=== PATIENT | female | born 1955 | race Caucasian/White ===

== ENCOUNTER 2017-11-07 18:29 | Emergency (ER) | payer OTHER ==
[~2017-11-07] VITALS: Ht 165.1 cm; Wt 72.6 kg
[~2017-11-07 18:29] MED LIST: FLEXERIL10 MG PO; PREMARIN0.45 MG PO; TOPROL XL 25MG25 MG PO
--- NOTE | 2017-11-07 20:08 | ED GI/GU/ABDOMINAL COMPLAINT ---
History of Present Illness General Chief Complaint: Abdominal Pain/Flank Pain Stated Complaint: L FLANK PAIN Source: patient Exam Limitations: no limitations Vital Signs & Intake/Output Vital Signs & Intake/Output Vital Signs Date Time Temp Pulse Resp B/P B/P Pulse O2 O2 Flow FiO2 Mean Ox Delivery Rate 11/07 2153 97.2 66 18 136/78 99 Room Air 11/07 1836 98.4 64 18 137/76 98 Room Air Room Air ED Intake and Output 11/08 0000 11/07 1200 Intake Total Output Total Balance Patient 160 lb Weight Weight Reported by Patient Measurement Method Allergies Coded Allergies: Penicillins (Intermediate, RASH 11/07/17) Reconcile Medications Conjugated Estrogens (Premarin) 0.45 MG TAB 0.45 MG PO AT BEDTIME HYSTERECTOMY (Reported) CYCLOBENZAPRINE HCL (Flexeril) 10 MG TABLET 1 TAB PO TID PRN BREAKTHROUGH PAIN Ibuprofen 800 MG TABLET 1 TAB PO TID PRN pain Metoprolol Succ XL (Toprol XL 25MG) 50 MG TAB.ER.24H 1 TAB PO AT BEDTIME IRREGULUAR HEARTBEAT (Reported) Ondansetron (Zofran Odt) 4 MG TAB.RAPDIS 1 TAB SL TID PRN nausea Oxycodone HCl/Acetaminophen (Percocet 5-325 MG Tablet) 5 MG-325 MG TABLET 1 TAB PO 4XDP PRN PAIN TEN...[id number] Triage Note: TRIAGE: 62 Y/O FEMALE PRESENTS C/O 06/20 LEFT FLANK REGION PAIN - SHARP SHOOTING, DULL ACHING, SPASMING 10 SINCE THIS MORNING. DENIES URINARY SYMPTOMS. Triage Nurses Notes Reviewed? yes ? n Is pt currently ? No Onset: Gradual Duration: day(s): Timing: recent history Quality/Severity: sharpness Location: left flank Radiation: no radiation Activities at Onset: none Prior Abdominal Problems: none Modifying Factors: Improves With: rest. Associated Symptoms: abdominal pain, nausea/vomiting HPI: 62 yo woman in prior good health presents with left flank pain. She notes, "I had some pain when I was walking the dogs... almost like I pulled a muscle... and then tonight at dinner, I felt a really sharp pain... it was awful... I doubled over." She notes that she is feeling better presently. She has no fever, chills, dysuria, radiation of pain, chest pain, dizziness. She is otherwise well. Past History Travel History Traveled to [place] past 21 day No Medical History Any Pertinent Medical History? see below for history Cardiovascular: hypertension Surgical History Surgical History: none Psychosocial History What is your primary language Lithuanian Tobacco Use: Never used ETOH Use: denies use Illicit Drug Use: denies illicit drug use Family History Hx Contributory? No Review of Systems Review of Systems Constitutional: Reports: no symptoms. EENTM: Reports: no symptoms. Respiratory: Reports: no symptoms. Cardiovascular: Reports: no symptoms. GI: Reports: no symptoms. Genitourinary: Reports: no symptoms. Musculoskeletal: Reports: no symptoms. Skin: Reports: no symptoms. Neurological/Psychological: Reports: no symptoms. Hematologic/Endocrine: Reports: no symptoms. Immunologic/Allergic: Reports: no symptoms. All Other Systems: Reviewed and Negative Physical Exam Physical Exam General Appearance: well developed/nourished Head: atraumatic, normal appearance Eyes: Bilateral: normal appearance. Ears, Nose, Throat, Mouth: hearing grossly normal Neck: normal inspection, supple, full range of motion, normal alignment Respiratory: normal breath sounds, chest non-tender, no respiratory distress, quiet respiration Cardiovascular: regular rate/rhythm Gastrointestinal: normal bowel sounds, soft, non-tender Back: left flank muscle tenderness to palpation. Extremities: normal range of motion Neurologic/Psych: no motor/sensory deficits, awake, alert, oriented x 3 Skin: intact, normal color, warm/dry Core Measures ACS in differential dx? No Sepsis Present: No Sepsis Focused Exam Completed? No Progress Differential Diagnosis: back pain, kidney stones vs other. Plan of Care: Orders Procedure Date/time Status TROPONIN LEVEL 11/07 1914 Complete LIPASE 11/07 1914 Complete HEPATIC FUNCTION PANEL 11/07 1914 Complete CBC WITHOUT DIFFERENTIAL 11/07 1914 Complete BASIC METABOLIC PANEL 11/07 1914 Complete AMYLASE 11/07 1914 Complete EKG 11/07 1914 Active URINALYSIS 11/07 1837 Complete Laboratory Tests 11/07/17 2001: Anion Gap 13, Estimated GFR > 60, BUN/Creatinine Ratio 27.8 H, Glucose 119 H, Calcium 10.0, Total Bilirubin 0.3, Direct Bilirubin 0.1, AST 22, ALT 29, Alkaline Phosphatase 75, Troponin I < 0.01, Total Protein 7.2, Albumin 4.1, Amylase 86, Lipase 268, CBC w Diff NO MAN DIFF REQ, RBC 4.75, MCV 90.5, MCH 30.0 , MCHC 33.2, RDW 13.1, MPV 9.0, Gran % 89.1 H, Lymphocytes % 4.8 L, Monocytes % 4.6, Eosinophils % 1.3, Basophils % 0.2, Absolute Granulocytes 9.5 H, Absolute Lymphocytes 0.5 L, Absolute Monocytes 0.5, Absolute Eosinophils 0.1, Absolute Basophils 0 11/07/17 1852: Urine Color YEL, Urine Clarity CLEAR, Urine pH 5.5, Ur Specific Mchenry >= 1.030 , Urine Protein 30 H, Urine Ketones NEG, Urine Nitrite NEG, Urine Bilirubin NEG , Urine Urobilinogen 0.2, Ur Leukocyte Esterase NEG, Ur Microscopic SEDIMENT EXAMINED, Urine RBC 25-50 H, Urine WBC 3-5 H, Ur Epithelial Cells FEW, Urine Crystals 1+ CA OX H, Urine Bacteria RARE H, Urine Mucus RARE, Urine Hemoglobin LARGE H, Urine Glucose NEG Diagnostic Imaging: Viewed by Me: CT Scan. Discussed w/RAD: CT Scan. Radiology Impression: PATIENT: JOSE JEFFERSON PRESENT AGE: 62 PATIENT ACCOUNT NO: [id number] : 54 LOCATION: [facility] ORDERING PHYSICIAN: Néstor Springer MD SERVICE DATE: 11/07/17 EXAM TYPE: CAT - CT ABD & PELVIS W/O IV CONTRAS EXAMINATION: CT ABDOMEN AND PELVIS WITHOUT CONTRAST CLINICAL INFORMATION: Left flank pain. Possible kidney stone. COMPARISON: 11/13/2011 TECHNIQUE: Multidetector volumetric imaging was performed from the superior aspect of the liver through the pubic symphysis. Sagittal and coronal reformatted images were obtained on the technologist's workstation. DLP: 315 mGy-cm FINDINGS: LUNG BASES: The visualized lung bases are unremarkable. LIVER, GALLBLADDER, AND BILIARY TREE: The liver is normal in size, shape, and attenuation. No focal hepatic lesion or biliary ductal dilatation. Gallbladder is surgically absent. PANCREAS: Unremarkable. SPLEEN: Unremarkable. ADRENAL GLANDS: A 1.3 cm nodule of the left adrenal gland has attenuation of 2 HU, consistent with lipid rich adenoma, and it remains similar in size compared to 11/13/2011. KIDNEYS AND URETERS: There is a 0.4 cm calyceal stone within the lower pole of the left kidney. Agqr-oo-[id number] left hydronephrosis and perinephric edema are caused by a calculus measuring up to 0.5 cm in the region of the ureteropelvic junction. Otherwise, the left ureter is unremarkable. There is a 0.5 cm hyperdense focus of 125 HU attenuation of the upper pole of the right kidney, consistent with a hyperdense cyst. Otherwise, the right kidney and right ureter are unremarkable. BLADDER: Unremarkable. GASTROINTESTINAL TRACT: Bowel loops are normal in size. Appendix is normal. Pancolonic diverticulosis without diverticulitis. No ascites or pneumoperitoneum. ABDOMINAL WALL: Unremarkable. LYMPH NODES: No pathologic sized lymph nodes in the abdomen or pelvis. VASCULAR: Abdominal aorta is normal in caliber. There is a circumaortic left renal vein. PELVIC VISCERA: Status post hysterectomy. No pelvic mass or free fluid. Multiple phleboliths are seen within the pelvis. OSSEOUS STRUCTURES: No suspicious osseous lesions. IMPRESSION: 1. Stfv-ix-ctxytuql left hydronephrosis and perinephric edema caused by a 0.5 cm calculus in the region of the ureteropelvic junction. In addition, a 0.4 cm calyceal stone is seen within the lower pole of the left kidney. 2. Pancolonic diverticulosis without diverticulitis. 3. Lipid rich adenoma of the left adrenal gland. DICTATED BY: Donovan Garcia MD DATE/TIME DICTATED:11/07/172051 MACHINE ASSEMBLER:ISRAEL DATE/TIME TRANSCRIBED:11/07/172051 CONFIDENTIAL, DO NOT COPY WITHOUT APPROPRIATE AUTHORIZATION. <Electronically signed in Other Vendor System> SIGNED BY: Donovan Garcia MD 11/07/172105 Initial ED EKG: normal sinus rhythm, NSR, no acute changes Departure Departure Disposition: HOME OR SELF CARE Condition: Stable Clinical Impression Primary Impression: Renal colic on left side Secondary Impressions: Kidney stones, calcium oxalate Referrals: Unknown (PCP/Family) Departure Forms: Customer Survey General Discharge Information Prescriptions: Current Visit Scripts Ibuprofen 1 TAB PO TID PRN pain #60 TAB Ref 1 Oxycodone HCl/Acetaminophen (Percocet 5-325 MG Tablet) 1 TAB PO 4XDP PRN PAIN #10 TAB TEN...[id number] Ondansetron (Zofran Odt) 1 TAB SL TID PRN nausea #10 TAB Ref 1 Comments 11/07/17, 21:20... pt feeling better. feels comfortable going home... pt referred to urology, sent rx for supportive medications.
[2017-11-07 20:09] LABS: ABSOLUTE BASOPHIL COUNT 0 /CUMM (0.0-0.2); ABSOLUTE EOSINOPHIL COUNT 0.1 /CUMM (0.0-0.7); ABSOLUTE GRANULOCYTE CT 9.5 /CUMM (1.4-6.5); ABSOLUTE LYMPH COUNT 0.5 /CUMM (1.2-3.4); ABSOLUTE MONOCYTE COUNT 0.5 /CUMM (0.10-0.60); BASOPHIL % 0.2 % (0.0-2.0); EOSINOPHIL % 1.3 % (0-5); MEAN CORPUSCULAR HGB CONC 33.2 G/DL (33.0-37.0); MEAN CORPUSCULAR VOLUME 90.5 FL (81.0-99.0); PLATELET COUNT 235 /CUMM (130-400); RBC DISTRIBUTION WIDTH 13.1 % (11.5-14.5); RED BLOOD CELL CT 4.75 /CUMM (4.20-5.40); WHITE BLOOD CELL COUNT 10.7 /CUMM (4.8-10.8)
[2017-11-07 20:10] LABS: GRANULOCYTE % 89.1 % (42.2-75.2)
--- NOTE | 2017-11-07 21:06 | CT SCAN REPORT ---
EXAMINATION: CT ABDOMEN AND PELVIS WITHOUT CONTRAST CLINICAL INFORMATION: Left flank pain. Possible kidney stone. COMPARISON: 11/13/2011 TECHNIQUE: Multidetector volumetric imaging was performed from the superior aspect of the liver through the pubic symphysis. Sagittal and coronal reformatted images were obtained on the technologist's workstation. DLP: 315 mGy-cm FINDINGS: LUNG BASES: The visualized lung bases are unremarkable. LIVER, GALLBLADDER, AND BILIARY TREE: The liver is normal in size, shape, and attenuation. No focal hepatic lesion or biliary ductal dilatation. Gallbladder is surgically absent. PANCREAS: Unremarkable. SPLEEN: Unremarkable. ADRENAL GLANDS: A 1.3 cm nodule of the left adrenal gland has attenuation of 2 HU, consistent with lipid rich adenoma, and it remains similar in size compared to 11/13/2011. KIDNEYS AND URETERS: There is a 0.4 cm calyceal stone within the lower pole of the left kidney. Hxln-at-kmsfdxar left hydronephrosis and perinephric edema are caused by a calculus measuring up to 0.5 cm in the region of the ureteropelvic junction. Otherwise, the left ureter is unremarkable. There is a 0.5 cm hyperdense focus of 125 HU attenuation of the upper pole of the right kidney, consistent with a hyperdense cyst. Otherwise, the right kidney and right ureter are unremarkable. BLADDER: Unremarkable. GASTROINTESTINAL TRACT: Bowel loops are normal in size. Appendix is normal. Pancolonic diverticulosis without diverticulitis. No ascites or pneumoperitoneum. ABDOMINAL WALL: Unremarkable. LYMPH NODES: No pathologic sized lymph nodes in the abdomen or pelvis. VASCULAR: Abdominal aorta is normal in caliber. There is a circumaortic left renal vein. PELVIC VISCERA: Status post hysterectomy. No pelvic mass or free fluid. Multiple phleboliths are seen within the pelvis. OSSEOUS STRUCTURES: No suspicious osseous lesions. IMPRESSION: 1. Sjbd-bb-xhzwfwmt left hydronephrosis and perinephric edema caused by a 0.5 cm calculus in the region of the ureteropelvic junction. In addition, a 0.4 cm calyceal stone is seen within the lower pole of the left kidney. 2. Pancolonic diverticulosis without diverticulitis. 3. Lipid rich adenoma of the left adrenal gland.
[2017-11-07] MEDS ORDERED: PERCOCET 5-3251 EACH PO (21:17)
[2017-11-07] MEDS ORDERED: ZOFRAN ODT4 M1 SL (21:17)
[2017-11-07] MEDS ORDERED: IBUPROFEN800 M1 PO (21:17)
[2017-11-07 21:53] VITALS: BP 136/78
== END 2017-11-07 21:55 ==
LOC: ERH 18:29
PROVIDERS: Pediatrics
DX: N23 Unspecified renal colic (principal); N20.0 Calculus of kidney; N28.89 Other specified disorders of kidney and ureter
CPT/HCPCS: 74176; 81001; 93005; 93010; 96372; J1885; J2405; J3101

== ENCOUNTER → 2017-11-23 | Day surgery (SDC) | payer OTHER ==
[~2017-11-23] VITALS: Ht 165.1 cm; Wt 73.0 kg
[~2017-11-23] MED LIST changes: +AMLODIPINE BESYL5 M1 PO; +ASPIRIN EC81 M1 PO; +CALCIUM600 M3 PO; +FISH OIL 1,0001 EACH PO; +FOLIC ACID0.4 M1 PO; +GARLIC1 EAC1 PO; +IBUPROFEN800 M1 PO; +LOPRESSOR50 M1 PO; +MAGNESIUM500 M2 PO; +PERCOCET 5-3251 EACH PO; +VITAMIN B-121000 MC3 PO; +VITAMIN D1000 UNIT PO; +ZOFRAN ODT4 M1 SL
--- NOTE | 2017-11-23 13:04 | Operative Report ---
Operative/Inv Procedure Report Surgery Date: 11/23/17 Name of Procedure: left ureter ESWL, fluoroscopy Pre-Operative Diagnosis: Left ureter stone, 7 mm in size Post-Operative Diagnosis: same Estimated Blood Loss: none Surgeon/Associate Vice President: Francois Padgett MD Anesthesia: moderate sedation Specimens: none Complications: none Operative/Procedure Note Note: The patient was taken to the operating room and placed on the ESWL table in supine position. Time out was performed, with the patient awake, to confirm identity, procedure, laterality, and other pertinent arnaldo-operative information. After adequate anesthesia, the patient was positioned so that the left flank was placed over the ESWL table cut-out, and overlying the dome of the shockwave generator. C-arm fluroscopy, as well as renal US was used to locate the stone, and evaluate the left kidney. The stone was visible on fluroloscopy at the left ureter. Renal US confirmed mild hydronephrosis, with no additional stone seen in the left kidney. The left ureter stone was approximate 7 mm in size, and faintly visible with fluoroscopy. Using fluoroscopy, the position of the ureter stone was optimized for ESWL, using AP, and oblique views of the stone. Subsequently, E.S.W.L. was initiated at low power levels x 200 shocks. After noting the patient's tolerance to the shockwaves, the shock wave power level was quickly maximized. At the end of the procedure, the composition of the stone had changed significantly indicating the pulverization of the ureter stone. A total of 3000 shockwaves were delivered to the stone in order to achieve adequate lithotrypsy. The patient tolerated the procedures well, was awakened, and taken to recovery in satisfactory condition via stretcher. The pt will eventually be dischared to home with pain meds, diet orders, and intructions to catch fragments with straining the urine. The patient is to have follow-up renal ultrasound and KUB (after the left renal stone is treated as well). Discharge Disposition: Same Day Admissions CC: Francois Padgett MD
== END ==
LOC: STS 03:32
DX: N13.2 Hydronephrosis with renal and ureteral calculous obstruction (principal); I10 Essential (primary) hypertension
CPT/HCPCS: J2250

== ENCOUNTER → 2018-01-06 | Day surgery (SDC) | payer OTHER ==
[~2018-01-06] VITALS: Ht 165.1 cm; Wt 73.0 kg
[~2018-01-06] MED LIST changes: +CIPRO500 M1 PO; +MACROBID 100 M100 MG PO
--- NOTE | 2018-01-06 17:08 | RADIOLOGY REPORT ---
EXAMINATION: XR ABDOMEN CLINICAL INFORMATION: Left cystoscopy stent placement with retrograde laser. COMPARISON: X-ray of kidneys, ureters, bladder 12/08/2017. Ultrasound renal 12/08/2017. CT abdomen and pelvis 11/07/2017 and 11/13/2011. TECHNIQUE: Several digital images were obtained in the OR during left retrograde pyelogram. FINDINGS: The initial image reveals a small filling defect in the left distal ureter above the UVJ area. There is a small column of intravenous contrast in the distal ureter. The subsequent images reveal a left ureteral stent with its proximal end in the left kidney pelvis and the proximal end not visualized. IMPRESSION: Small filling defect in the left distal ureter above the UVJ area. There is subsequent stent placement with its upper end in the left kidney pelvis and the distal end not in the [id number].
--- NOTE | 2018-01-19 08:02 | Operative Report ---
Operative/Inv Procedure Report Surgery Date: 01/06/18 Name of Procedure: cysto: left ureteroscopy with laser litho: stent placement.. fluoros. Pre-Operative Diagnosis: left obstructing stone with hydro-colic Post-Operative Diagnosis: same Estimated Blood Loss: scant Surgeon/Unload Associate: Francois Padgett MD Anesthesia: moderate sedation Specimens: left ureter stone fragment Complications: none Operative/Procedure Note Note: The patient was taken to the operating room and placed on the OR table in supine position. With the patient awake, timeout was performed in order to confirm; correct patient, correct procedure, as well as correct laterality, and other pertinent arnaldo-operative information. After adequate anesthesia and antibiotics , the patient was then placed lithotomy stirrups, draped and prepped in the usual surgical fashion. A 22 Nepalese cystoscope sheath with 30 angle lens was inserted into the bladder without difficulty. Upon entering the bladder, the bladder was noted to be free of tumor free of stone. Both orifices were in their orthotopic position. The left ureter orifice was intubated with an 8fr cone-tip catheter and a retrograde pyelogram with fluoroscopy was performed. A proximal ureter strictue, and a 7 mm left ureter filling defect (c/w stone), with proximal hydronephrosis, was visualized. The cone-tipped catheter was removed, followed by insertion of a 0.035 Glidewire, which was advanced into the left renal pelvis without difficulty, with correct placement confirmed on fluoroscopy. Leaving the Glidewire in place, an 8 Nepalese ureteral dilator was reloaded over the Glidewire. The dilator was advanced slowly, and easily, with fluoroscopic visualization and advanced beyond orific, into the left ureter. The ureteral dilator was then removed, leaving the Glidewire in place. The flexible ureteroscope was reloaded over the Glidewire, and was ealily advanced into the bladder, and into the left ureter under direct fluoroscopic visualization. With the ureteroscope in the left ureter, the large stone was visualized. Under direct visualization the 400 g holmium YAG laser fiber was inserted through the ureteroscope. With the laser fiber in direct contact with the stone, laser lithotripsy was performed in order to pulverize the stone into multiple tiny fragments. The fragments were all flushed out, and fragments were sent to pathology for analysis. At this point, pyeloscopy, and calyxoscopy was performed revealing no other stones, nor any tumor. The Glidewire was then reinserted through the ureteroscope. Leaving the wire in place, the ureteroscope was removede, and the entire length of the ureter was carefully visualized on the way out:no additional stone, or tumor was seen. The 22 Nepalese cystoscope sheath with a 30 angle lens was then reinserted into the bladder, with the Glidewire back loaded into the scope. A 6 x 22 Bard operatively ureteral stent was inserted over the Glidewire. With the proximal coil advanced into the left renal pelvis, confirmed on fluoroscopy, and the distal coil seen in the bladder cystoscopically, the Glidewire was removed and the stent remained in proper place. The bladder was then drained, and the cystoscope was removed. The patient tolerated the procedure well was then taken to the recovery room in satisfactory condition. The patient is to follow up in 1-2 weeks for stent removal. Discharge Disposition: PACU CC: Francois Padgett MD
== END ==
LOC: STS 01:20
DX: N13.2 Hydronephrosis with renal and ureteral calculous obstruction (principal); I10 Essential (primary) hypertension
CPT/HCPCS: 74018; 82355; J2250